=== PATIENT | male | born 1985 | race Caucasian/White ===

== ENCOUNTER 2023-10-18 13:51 | Inpatient (IN) | payer OTHER ==
[2023-10-18 14:21] VITALS: BMI 32.8
[2023-10-18] MEDS ORDERED: MAGNESIUM HYDROX 2400MG/30ML ORAL SUSPENSION 30 ML CUP PO PRN (15:54)
[2023-10-18] MEDS ORDERED: BENZONATATE 200 MG CAPSULE PO PRN (15:54)
[2023-10-18] MEDS ORDERED: BENZOCAINE/MENTHOL (CHLORASEPTIC ) LOZENGE MM PRN (15:54)
[2023-10-18] MEDS ORDERED: ACETAMINOPHEN 325 MG TABLET (FP) PO PRN (15:54)
[2023-10-18] MEDS ORDERED: hydrOXYzine PAMOATE 25 MG CAPSULE (FP) PO PRN (15:54)
[2023-10-18] MEDS ORDERED: NALOXONE (NARCAN) HCL 4 MG/0.1 ML SPRAY NS PRN (15:54)
[2023-10-18] MEDS ORDERED: P-EPHED 60MG/TRIPROLIDI 2.5MG TABLET PO PRN (15:54)
[2023-10-18] MEDS ORDERED: BISMUTH SUBSALICYLATE 524 MG/30 ML PO PRN (15:54)
[2023-10-18] MEDS ORDERED: DICYCLOMINE HCL 10 MG CAPSULE PO PRN (15:54)
[2023-10-18] MEDS ORDERED: ONDANSETRON *ODT* 4 MG TABLET SL PRN (15:54)
[2023-10-18] MEDS ORDERED: NALOXONE HCL 0.4 MG/ML VIAL IM PRN (15:54)
[2023-10-18] MEDS ORDERED: POLYETHYLENE GLYCOL (HEALTHYLAX) 3350 17 GM PACKET PO PRN (15:54)
[2023-10-18] MEDS ORDERED: MAG HYDROX/AL HYDROX/SIMETH 30 ML UNIT-DOSE CUP PO PRN (15:54)
[2023-10-18] MEDS ORDERED: guaiFENesin 600 MG TABLET.ER (FP) PO PRN (15:54)
[2023-10-18] MEDS ORDERED: LOPERAMIDE HCL 2 MG CAPSULE PO PRN (15:54)
[2023-10-18] MEDS: methaDONE HCL 10 MG TABLET PO ONE ×2 (19:27→19:32)
[2023-10-18] MEDS: MELATONIN 5 MG TABLETS PO SCH (22:46)
[2023-10-18] MEDS: THIAMINE 100 MG TABLET PO SCH (22:46)
[2023-10-18] MEDS: METHOCARBAMOL 500 MG TABLET PO PRN (22:47)
[2023-10-19] MEDS: PRENATAL VITAMINS W/ FOLIC ACID TABLET (FP) PO SCH (09:50)
[2023-10-19] MEDS: cloNIDine HCL 0.1 MG TABLET PO SCH (09:51)
[2023-10-19] MEDS: methaDONE HCL 40 MG DISPERSABLE TABLET PO ONE (09:51)
[2023-10-19 16:45] LABS: HEMATOCRIT 37.4 % (35.4-49); HEMOGLOBIN 12.1 GM/dL (11.7-16.9); MCH 27.5 pg (25.7-33.7); MCHC 32.5 g/dl (32.0-35.9); MEAN CELL VOLUME 84.7 fl (80-96); MEAN PLT VOLUME 8.3 fl (7.5-11.1); PLATELET COUNT 215 10^3/uL (134-434); RBC 4.42 M/mm3 (4.00-5.60); RDW 14.3 % (11.9-15.9); WHITE BLOOD COUNT 5.7 K/mm3 (4.0-10.0)
[2023-10-19 16:54] LABS: CALCIUM 9.7 mg/dL (8.5-10.1)
[2023-10-19 16:55] LABS: ALBUMIN 3.7 g/dl (3.4-5.0); BLOOD UREA NITROGEN 15.7 mg/dL (7-18)
[2023-10-19 16:58] LABS: CREATININE 0.9 mg/dL (0.55-1.3)
[2023-10-19 16:59] LABS: BILIRUBIN,TOTAL 0.5 mg/dL (0.2-1)
[2023-10-20] MEDS: methaDONE 40 MG, methaDONE 10 MG PO ONE (09:34)
[2023-10-21] MEDS ORDERED: cloNIDine HCL 0.1 MG TABLET PO PRN
[2023-10-21] MEDS: methaDONE 40 MG, methaDONE 20 MG PO ONE (09:08)
[2023-10-22] MEDS: methaDONE 40 MG, methaDONE 30 MG PO ONE (09:58)
[2023-10-22] MEDS: IBUPROFEN 400 MG TABLET (FP) PO PRN (21:25)
[2023-10-22] MEDS: MELATONIN 5 MG TABLETS PO SCH (23:03)
[2023-10-23] MEDS: methaDONE HCL 40 MG DISPERSABLE TABLET PO ONE (09:26)
[2023-10-23] MEDS: IBUPROFEN 600 MG TABLET (FP) PO PRN (09:28)
[2023-10-23 11:57] LABS: POTASSIUM 4.2 mmol/L (3.5-5.1)
[2023-10-23 12:00] LABS: CALCIUM 9.5 mg/dL (8.5-10.1)
[2023-10-23 12:04] LABS: CREATININE 0.8 mg/dL (0.55-1.3)
[2023-10-23 12:07] LABS: BASO % 0.2 % (0-2.0); EOS % 5.2 % (0-4.5); HEMATOCRIT 39.2 % (35.4-49); HEMOGLOBIN 13.1 GM/dL (11.7-16.9); MCH 28.3 pg (25.7-33.7); MCHC 33.4 g/dl (32.0-35.9); MEAN CELL VOLUME 84.8 fl (80-96); MEAN PLT VOLUME 8.1 fl (7.5-11.1); MONO % 8.6 % (3.8-10.2); PLATELET COUNT 211 10^3/uL (134-434); RBC 4.63 M/mm3 (4.00-5.60); RDW 14.2 % (11.9-15.9); WHITE BLOOD COUNT 6.8 K/mm3 (4.0-10.0)
[2023-10-24 08:45] VITALS: BP 120/83; PULSE 80; RESP 18; TEMP 97.8
[2023-10-24] MEDS: methaDONE 80 MG, methaDONE 10 MG PO ONE (09:31)
== END 2023-10-24 10:35 | disposition other institution (70) | DRG 773 ==
LOC: YASAS 13:51 → UNDOADMIN 17:30 → Y6N 17:30
PROVIDERS: ADMIT Allergy & Immunology; ATTEND Surgery
PROC: HZ2ZZZZ Detoxification Services for Substance Abuse Treatment (ICD-10-PCS; principal; 2023-10-19)
DX: F11.23 Opioid dependence with withdrawal (principal); F10.20 Alcohol dependence, uncomplicated; F14.20 Cocaine dependence, uncomplicated; F12.20 Cannabis dependence, uncomplicated; Z87.891 Personal history of nicotine dependence; Z59.00 Homelessness unspecified
CPT/HCPCS: 36415; 80048; 80053; 80305; 80307; 85025; 85027; 86780; 93005; 93010